=== PATIENT | female | born 1985 | race Caucasian/White ===

== ENCOUNTER → 2017-12-10 | Outpatient (CLI) | payer BC ==
[~2017-12-10] MED LIST: AMBIEN 5MG TABLE5 MG PO; GIANVI 3 MG-0.01 TAB PO; KLONOPIN 0.5MG0.5 MG PO; NEXIUM 40MG40 MG PO; WELLBUTRIN 75MG75 MG PO
== END ==
LOC: BHSO 14:00
DX: F41.1 Generalized anxiety disorder (principal)
CPT/HCPCS: G0463